=== PATIENT | female | born 1970 | race Asian ===

== ENCOUNTER 2024-10-27 21:05 | Emergency (ER) | payer SELFPAY ==
[~2024-10-27] VITALS: Ht 166.4 cm; Wt 77.2 kg
[2024-10-27 21:18] VITALS: O2SAT 100
[2024-10-27 22:53] LABS: UCG KIT LOT# 865648; UCG SCREEN NEGATIVE
[2024-10-28 00:28] LABS: BASOPHILS % 0.4 % (0.0-2.0); EOSINOPHILS % 2.4 % (0.0-5.0); HEMATOCRIT. 35.9 % (36.0-48.0); HEMOGLOBIN. 11.9 g/dL (12.0-16.0); LYMPHOCYTES % 27.5 % (20.0-50.0); MEAN CORPUSCULAR HEMOGLOBIN 29.7 pg (28.0-32.0); MEAN CORPUSCULAR HGB CONC 33.1 g/dL (31.0-37.0); MEAN CORPUSCULAR VOLUME 89.6 fL (81.0-99.0); MEAN PLATELET VOLUME 7.3 fl (7.4-10.4); MONOCYTES % 7.3 % (2.0-8.0); NEUTROPHILS % 62.4 % (40.0-76.0); PLATELET 382 x1000/uL (130-400); RED CELL DISTRIBUTION WIDTH 14.4 % (11.6-14.6); WHITE BLOOD COUNT 7.8 x1000/uL (4.5-11.0)
[2024-10-28] MEDS: IBUPROFEN 800MG TABLET PO ONE (01:45)
[2024-10-28] MEDS ORDERED: IBUP-2030 PO (01:56)
[2024-10-28 03:38] VITALS: BP 120/67; PULSE 61; RESP 19; TEMP 36.83628; O2SAT 100
== END 2024-10-28 03:40 | disposition home or self-care (01) ==
LOC: ER 21:05
DX: N93.8 Other specified abnormal uterine and vaginal bleeding (principal); D21.9 Benign neoplasm of connective and other soft tissue, unspecified
CPT/HCPCS: 36415; 76830; 76856; 81025; 85025; 86850; 86900; 99284